=== PATIENT | female | born 1970 | race Asian ===

== ENCOUNTER → 2017-04-15 | Outpatient (CLI) | payer OTHER ==
--- NOTE | 2017-04-17 09:30 | MM ---
Reason for exam: screening (asymptomatic). History: Patient had first child at age 33. Implant Removal of both breasts, 2013. Excisional biopsy of the right breast, 2009. Physical Findings: Nurse did not find any significant physical abnormalities on exam. MG 3D Screening Mammo W/Cad Bilateral CC and MLO view(s) were taken. No prior studies available for comparison. The breast tissue is extremely dense which could obscure a lesion on mammography. Some contour deformity of the left breast compatible with patients prior surgery. Benign appearing round loosely grouped calcifications anterior right upper outer quadrant. Additional loose group at 5 o'clock posterior right breast warrant further work up. These results were verbally communicated with the patient and result sheet given to the patient on 04/15/17. ASSESSMENT: Incomplete: need additional imaging evaluation, BI-RAD 0 RECOMMENDATION: Special view mammogram of the right breast. If lesion persists on supplemental views, image directed ultrasound is recommended. [facility] will attempt to contact patient to return for supplemental views and ultrasound if indicated.
--- NOTE | 2017-04-17 09:32 | MM ---
Reason for exam: additional evaluation requested from abnormal screening. History: Patient had first child at age 33. Implant Removal of both breasts, 2013. Excisional biopsy of the right breast, 2009. Physical Findings: Nurse did not find any significant physical abnormalities on exam. MG Work Up Mamm w CAD RT ML, CC with magnification, and ML with magnification view(s) were taken of the right breast. The breast tissue is heterogeneously dense. This may lower the sensitivity of mammography. The questioned 5-6 o'clock posterior calcifications layer on lateral view compatible with benign milk of calcium. These results were verbally communicated with the patient and result sheet given to the patient on 04/15/17. ASSESSMENT: Benign, BI-RAD 2 RECOMMENDATION: Return to routine screening mammogram schedule for both breasts. JON
== END | disposition home or self-care (01) ==
LOC: RADMAMWWP 12:59
PROVIDERS: ATTEND Obstetrics & Gynecology
DX: Z12.31 Encounter for screening mammogram for malignant neoplasm of breast (principal); R92.8 Other abnormal and inconclusive findings on diagnostic imaging of breast; R92.2 Inconclusive mammogram
CPT/HCPCS: 77063; G0202; G0206; G0279